=== PATIENT | female | born 1955 | race Caucasian/White ===

== ENCOUNTER 2019-11-01 15:29 | Emergency (ER) | payer MEDICARE ==
[2019-11-01 16:35] LABS: Bacteria/HPF None Seen HPF (None Seen); Bilirubin Negative (Negative); Blood, Urine Negative (Negative); Clarity Clear (Clear); Glucose, Urine (Dipstick) Normal (Negative); Ketone, Urine Negative (Negative); Leukocyte 75 Leu/uL (Negative); Nitrite Negative (Negative); Protein, Urine (Dipstick) Negative (Neg-Trace); RBC/HPF 0-3 HPF (0-3); Specific Gravity, Urine 1.025 (1.002-1.036); Squamous Epithelial 0-3 HPF (0-3); Urobilinogen Normal mg/dL (Less than 2)
[2019-11-01 17:05] LABS: #Eosinphils 0.3 thou/uL (0.0-0.7); #Lymphocytes 2.1 thou/uL (1.20-3.40); #Monocytes 0.5 thou/uL (0.11-0.59); #Neutrophils 7.3 thou/uL (1.40-6.50); %Basophils 0.3 % (0.0-1.0); %Eosinophils 2.6 % (0.0-10.0); %Lymphocytes 20.8 % (21.0-51.0); %Monocytes 4.7 % (0.0-10.0); %Neutrophils 71.6 % (42.0-75.0); Hemoglobin 13.7 g/dL (12.0-16.0); Mean Corpuscular HGB CONC 33.1 g/dL (32.0-36.0); Mean Corpuscular Hemoglobin 28.7 pg (27.0-31.0); Mean Corpuscular Volume 86.7 fL (78.0-98.0); Mean Platelet Volume 6.3 fL (7.4-10.4); Platelet Count 308 thou/uL (130-400); RBC Distribution Width 12.8 % (11.5-14.5); Red Blood Cell (RBC) Count 4.77 mill/uL (4.20-5.40); White Blood Cell (WBC) Count 10.2 thou/uL (4.8-10.8)
[2019-11-01] MEDS ORDERED: Morphine 4 MG/ML VIAL ONE (17:22)
[2019-11-01] MEDS ORDERED: Ondansetron PF 4 MG/2 ML Vial ONE ×2 (17:22→17:25)
[2019-11-01 17:25] LABS: ALT (SGPT) 28 U/L (8-55); AST (SGOT) 14 U/L (5-34); Albumin 4.1 g/dL (3.4-4.8); Alkaline Phosphatase 95 U/L (40-110); Anion Gap 15 mmol/L (10-20); BUN (Urea Nitrogen) 24 mg/dL (9.8-20.1); Bilirubin, Total 0.2 mg/dL (0.2-1.2); Calc. Creatinine Clearance 0 mL/min (70-130); Calcium 9.8 mg/dL (7.8-10.44); Carbon Dioxide 24 mmol/L (23-31); Chloride 102 mmol/L (98-107); Estimated GFR-MDRD 81; Glucose 127 mg/dL (80-115); Lipase 21 U/L (8-78); Potassium 4.4 mmol/L (3.5-5.1); Protein, Total 8.1 g/dL (6.0-8.3); Sodium 137 mmol/L (136-145)
--- NOTE | 2019-11-01 17:26 | ULT ---
EXAM: US Gallbladder RUQ CLINICAL HISTORY: Right upper quadrant pain. COMPARISON: None. FINDINGS: Pancreas: The head of the pancreas has a normal echotexture. The remainder the pancreas is obscured by bowel gas. Liver:Hepatic parenchyma has a normal echotexture. No hepatic masses or intrahepatic biliary dilatati on. Right hepatic lobe: 17.8 cm Gallbladder: Echogenic foci within the gallbladder, compatible with gallstones. There appears to be a nonmobile gallstone in the neck of the gallbladder. Gallbladder wall is not thickened. Small amount of pericholecystic fluid Noriega's sign:Negative Portal Vein: Patent. Appropriate directional flow Bile ducts: 0.56 cm common bile duct diameter Right kidney: No hydronephrosis. Right kidney measures 10.0 cm in length. IMPRESSION: 1. Sonographic evidence of cholelithiasis. There appears to be a nonmobile stone in the neck of the g allbladder. Trace amount of pericholecystic fluid without gallbladder wall thickening. Negative Noriega's sign. If there is concern for cholecystitis, consider HIDA scan.
== END 2019-11-01 18:22 | disposition home or self-care (01) ==
LOC: ERS 15:29
DX: R10.11 Right upper quadrant pain (principal); E03.9 Hypothyroidism, unspecified; I10 Essential (primary) hypertension; G43.909 Migraine, unspecified, not intractable, without status migrainosus; F31.9 Bipolar disorder, unspecified; F17.200 Nicotine dependence, unspecified, uncomplicated; Z79.899 Other long term (current) drug therapy
CPT/HCPCS: 36415; 76705; 80053; 81003; 81015; 83690; 85025; 93005; 96374; 96375; J2270; J2405